=== PATIENT | female | born 1950 | race Caucasian/White ===

== ENCOUNTER 2019-08-25 22:09 | Emergency (ER) | payer MEDICARE ==
[~2019-08-25] VITALS: Ht 160 cm; Wt 95.2 kg
[2019-08-25] MEDS ORDERED: SYNTHROID125 MCG PO (22:26)
[2019-08-25] MEDS ORDERED: ZINC50 MG PO (22:27)
== END 2019-08-25 23:10 | disposition home or self-care (01) ==
LOC: ED 22:09
DX: R04.0 Epistaxis (principal); Z88.0 Allergy status to penicillin; Z79.899 Other long term (current) drug therapy
CPT/HCPCS: 99283

== ENCOUNTER 2020-01-01 08:50 | Emergency (ER) | payer MEDICARE ==
[~2020-01-01] VITALS: Ht 160 cm; Wt 95.2 kg
[~2020-01-01 08:50] MED LIST: SYNTHROID125 MCG PO; ZINC50 MG PO
[2020-01-01] MEDS ORDERED: ZITHROMAX250 MG PO (09:45)
== END 2020-01-01 09:57 | disposition home or self-care (01) ==
LOC: ED 08:50
PROC: 2Y41X5Z Packing of Nasal Region using Packing Material (ICD-10-PCS; principal; 2020-01-01)
DX: R04.0 Epistaxis (principal); Z88.0 Allergy status to penicillin; Z79.899 Other long term (current) drug therapy
CPT/HCPCS: 30901; 99283-25

== ENCOUNTER 2021-07-13 12:38 | Emergency (ER) | payer MEDICARE ==
[~2021-07-13] VITALS: Ht 160 cm; Wt 95.2 kg
[~2021-07-13 12:38] MED LIST changes: +ZITHROMAX250 MG PO
[2021-07-13] MEDS ORDERED: OMEPRAZOLE20 MG PO (12:57)
[2021-07-13] MEDS ORDERED: D3 + K2 DOTS 11 EACH PO (12:58)
[2021-07-13] MEDS ORDERED: NEURIVA DE-STR1 EACH PO (12:58)
[2021-07-13] MEDS ORDERED: B12 ACTIVE1000 MCG PO (12:58)
== END 2021-07-13 15:35 | disposition home or self-care (01) ==
LOC: ED 12:38
DX: R04.0 Epistaxis (principal); Z88.0 Allergy status to penicillin; Z79.899 Other long term (current) drug therapy
CPT/HCPCS: 30901; 99283-25

== ENCOUNTER 2021-07-13 18:53 | Emergency (ER) | payer MEDICARE ==
[~2021-07-13] VITALS: Ht 160 cm; Wt 95.2 kg
[~2021-07-13 18:53] MED LIST changes: +B12 ACTIVE1000 MCG PO; +D3 + K2 DOTS 11 EACH PO; +NEURIVA DE-STR1 EACH PO; +OMEPRAZOLE20 MG PO
--- OUTSIDE RECORDS SUMMARY | 2021-07-13 19:00 | XMS ---
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 - 2 Visits in 30 Days CARE PROVIDERS There are no care providers on record at this time. Debby has no Care Guidelines for this patient. Maria M VISIT COUNT (12 MO.) [facility] NOTE: Visits indicate total known visits. ED/C VISIT TRACKING (12 MO.) [facility] COMPLAINT: - NOSE BLEED 07/13/2021 12:39 [facility] [place] TYPE: Emergency COMPLAINT: - BLOODY NOSE INPATIENT VISIT TRACKING (12 MO.) No inpatient visits to display in this time frame [id number]
== END 2021-07-13 19:47 | disposition home or self-care (01) ==
LOC: ED 18:53
DX: R04.0 Epistaxis (principal); Z88.0 Allergy status to penicillin; Z79.899 Other long term (current) drug therapy
CPT/HCPCS: 30903; 99283-25

== ENCOUNTER 2021-07-14 18:36 | Emergency (ER) | payer MEDICARE ==
[~2021-07-14] VITALS: Ht 160 cm; Wt 99.8 kg
--- OUTSIDE RECORDS SUMMARY | 2021-07-14 18:44 | XMS ---
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 Debby has no Care Guidelines for this patient. Maria M [facility] MO[facility] NOTE: Visits indicate total known visits. ED/C VISIT TRACKING (12 MO.) [facility] COMPLAINT: - NOSE BLEED/PAIN 07/13/2021 18:53 [facility] [place] TYPE: Emergency COMPLAINT: - NOSE BLEED 07/13/2021 12:39 [facility] [place] TYPE: Emergency COMPLAINT: - BLOODY NOSE INPATIENT VISIT TRACKING (12 MO.) No inpatient visits to display in this time frame [id number]
== END 2021-07-14 20:20 | disposition home or self-care (01) ==
LOC: ED 18:36
DX: R04.0 Epistaxis (principal); Z79.899 Other long term (current) drug therapy; Z88.0 Allergy status to penicillin
CPT/HCPCS: 30903; 99283-25

== ENCOUNTER 2022-07-26 16:00 | Emergency (ER) | payer OTHER, MEDICARE ==
[~2022-07-26] VITALS: Ht 160 cm; Wt 105.7 kg
[2022-07-26] MEDS ORDERED: OMEPRAZOLE40 MG PO (16:35)
[2022-07-26] MEDS ORDERED: LISINOPRIL10 MG PO (16:35)
[2022-07-26] MEDS ORDERED: VERAPAMIL SR180 MG PO (16:36)
== END 2022-07-26 17:30 | disposition home or self-care (01) ==
LOC: ED 16:00
DX: S60.221A Contusion of right hand, initial encounter (principal); W01.10XA Fall on same level from slipping, tripping and stumbling with subsequent striking against unspecified object, initial encounter; Z88.0 Allergy status to penicillin; Z79.899 Other long term (current) drug therapy
CPT/HCPCS: 73130; 99283-25

== ENCOUNTER 2025-01-17 13:37 | Emergency (ER) | payer MEDICARE ==
[~2025-01-17] VITALS: Ht 160 cm; Wt 94.0 kg
[~2025-01-17 13:37] MED LIST changes: +CYCLOBENZAPRINE10 MG PO; +FENOFIBRATE145 MG PO; +LISINOPRIL10 MG PO; +OMEPRAZOLE40 MG PO; +PANTOPRAZOLE SO40 MG PO; +PAXLOVID 300-11 EAC1 PO; +VERAPAMIL SR180 MG PO
[2025-01-17] MEDS ORDERED: LATANOPROST2.5 ML (13:58)
[2025-01-17] MEDS ORDERED: ARTHRITIS PAIN650 MG (13:59)
[2025-01-17] MEDS ORDERED: ADVIL200 MG (14:00)
[2025-01-17 14:56] VITALS: BP 114/83
== END 2025-01-17 14:57 | disposition home or self-care (01) ==
LOC: ED 13:37
DX: J02.9 Acute pharyngitis, unspecified (principal); I10 Essential (primary) hypertension; E03.9 Hypothyroidism, unspecified; K21.9 Gastro-esophageal reflux disease without esophagitis; Z79.899 Other long term (current) drug therapy; Z88.0 Allergy status to penicillin
CPT/HCPCS: 87651; 99283

== ENCOUNTER 2025-02-16 00:56 | Emergency (ER) | payer MEDICARE ==
[~2025-02-16] VITALS: Ht 162.6 cm; Wt 93.0 kg
--- OUTSIDE RECORDS SUMMARY | ~2025-02-16 | XMS | Continuity of Care Document ---
Demographics + + + | Address | [address] | | | [place] [address] | + + + | Preferred Language | Unknown | + + + | Marital Status | | + + + | Denominational Affiliation | Unknown | + + + | Race | White | + + + | Ethnic Group | Not or | + + + Author + + + | Author | [facility] | + + + | Organization | [facility] | + + + | Address | [address] | | | [place] [address] | + + + | Phone | | + + + Care Team Providers + + + + | Care Insurance Adjuster Name | Role | Phone | + + + + Unavailable | Unavailable | + + + + Unavailable | Unavailable | + + + + Allergies No information. Encounters No information. Functional Status No information. Immunizations No information. Medications + + + + | date | description | facility | + + + + | (no date) | ACETAMINOPHEN | [facility] | | | | [facility] | + + + + | (no date) | Mecobalamin | [facility] | | | | [facility] | + + + + | (no date) | IBUPROFEN | [facility] | | | | [facility] | + + + + | (no date) | ZINC GLUCONATE | [facility] | | | | [facility] | + + + + | (no date) | LATANOPROST | [facility] | | | | [facility] | + + + + | (no date) | PANTOPRAZOLE SODIUM | [facility] | | | | [facility] | + + + + | (no date) | FENOFIBRATE | [facility] | | | NANOCRYSTALLIZED | [facility] | + + + + | (no date) | VITAMIN D3/MENAQUINONE 7 | [facility] | | | | [facility] | + + + + | (no date) | VERAPAMIL HCL | [facility] | | | | [facility] | + + + + | (no date) | LEVOTHYROXINE SODIUM | [facility] | | | | [facility] | + + + + Problems + + + + | date | description | facility | + + + + | 2025-01-17 00:00 | Pharyngitis | [facility] | | | | [facility] | + + + + Procedures No information. Results/Labs No information. Social History +--------+ + + | date | description | facility | +--------+ + + Vital Signs + + + +---------+ | date | measurement | value | units | + + + +---------+ | 2025-01-17 00:00 | BMI | 36.7 | kg/m2 | + + + +---------+ | 2025-01-17 00:00 | BP_diastolic | 83 | mmHg | + + + +---------+ | 2025-01-17 00:00 | BP_systolic | 114 | mmHg | + + + +---------+ | 2025-01-17 00:00 | heart_rate | 65 | /min | + + + +---------+ | 2025-01-17 00:00 | height_metric | 160.02 | cm | + + + +---------+ | 2025-01-17 00:00 | height_standard | 63 | in | + + + +---------+ | 2025-01-17 00:00 | o2_saturation | 94 | % | + + + +---------+ | 2025-01-17 00:00 | respiration_rate | 16 | /min | + + + +---------+ | 2025-01-17 00:00 | | 98 | F | | | temperature_standar | | | | | d | | | + + + +---------+ | 2025-01-17 00:00 | weight_metric | 94.001 | kg | + + + +---------+ | 2025-01-17 00:00 | weight_standard | 207.237 | lb | + + + +---------+"
[~2025-02-16 00:56] MED LIST changes: +ADVIL200 MG; +ARTHRITIS PAIN650 MG; +LATANOPROST2.5 ML
--- OUTSIDE RECORDS SUMMARY | 2025-02-16 01:03 | XMS ---
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 Debby has no Care Guidelines for this patient. Maria M VISIT COUNT (12 MO.) [address] [facility] [address] TOTAL 2 NOTE: Visits indicate total known visits. ED/C VISIT TRACKING (12 MO.) 02/16/2025 00:57 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
[2025-02-16] MEDS ORDERED: VERAPAMIL SR180 MG PO (01:09)
[2025-02-16 01:13] LABS: BASOPHILS 0.1 % (0.1-1.2); EOSINOPHILS 1.1 % (0.7-5.8); LYMPHOCYTES 27.8 % (19.3-51.7); MCH 30.4 PG (25.6-32.2); MCHC 33.4 g/dL (32.2-35.5); MCV 91.0 fL (79.4-94.8); MONOCYTES 8.1 % (4.7-12.5); NEUTROPHILS 62.5 % (34.0-71.1); RBC 4.57 M/uL (3.93-5.22)
[2025-02-16] MEDS ORDERED: SUCRALFATE 1 GM TAB PO ONE (01:15)
[2025-02-16] MEDS ORDERED: MORPHINE SULFATE 4 MG/ML VIAL IV ONE (01:15)
[2025-02-16] MEDS ORDERED: LIDOCAINE & ANTACID 35 ML BTL PO ONE (01:15)
[2025-02-16] MEDS ORDERED: PANTOPRAZOLE SODIUM 40 MG/10 ML VIAL IV ONE (01:15)
[2025-02-16 01:23] LABS: INR 0.93 (0.80-1.30); PROTIME 11.8 Sec (11.2-14.2)
[2025-02-16 01:37] LABS: ALT (SGPT) 21 U/L (14-59); AST (SGOT) 15 U/L (15-37); GLOMERULAR FILTRATION RATE,EST 66 mL/min (>60); PROTEIN, TOTAL 7.5 g/dL (6.4-8.2); UREA NITROGEN 19 mg/dL (7-18)
[2025-02-16] MEDS ORDERED: ONDANSETRON ODT8 MG PO (03:12)
[2025-02-16] MEDS ORDERED: HYDROCODON-ACE1 EA10 PO (03:12)
[2025-02-16] MEDS ORDERED: HYDROCODONE BIT/ACETAMINOPHEN 5/325 MG 1 TAB HOME.PACK PO ONE (03:15)
[2025-02-16] MEDS ORDERED: ONDANSETRON 4 MG HOME.PACK SL ONE (03:30)
[2025-02-16 03:33] VITALS: BP 129/61
--- NOTE | 2025-02-16 08:26 | EKG ---
[facility] [address] [place] [address] Signed Normal sinus rhythm Low voltage QRS Borderline ECG No previous ECGs available Confirmed by Emely Williamson MD () on 02/16/2025 8:25:46 AM Electronically Signed By: EMELY WILLIAMSON MD 02/16/25825 PATIENT NAME: YOANA PARR Electrocardiogram DATE OF : 48 PHYSICIAN: EMELY WILLIAMSON MD REPORT #: [id number] REPORT IS CONFIDENTIAL AND NOT TO BE RELEASED WITHOUT AUTHORIZATION
== END 2025-02-16 03:34 | disposition home or self-care (01) ==
LOC: ED 00:56
PROVIDERS: Family Medicine
DX: K85.90 Acute pancreatitis without necrosis or infection, unspecified (principal); I10 Essential (primary) hypertension; K21.9 Gastro-esophageal reflux disease without esophagitis; Z88.0 Allergy status to penicillin; Z79.899 Other long term (current) drug therapy; Z79.2 Long term (current) use of antibiotics
CPT/HCPCS: 36415; 71045; 74177; 80053; 82378; 83690; 83735; 83880; 84478; 84484; 85025; 85379; 85610; 86301; 93005; 93010; 96374; 99284-25; A9270; J2470; Q9967

== ENCOUNTER 2025-03-09 05:53 | Day surgery (SDC) | payer MEDICARE ==
[2025-03-08 15:44] VITALS: BP 136/92
[~2025-03-09] VITALS: Ht 162.6 cm; Wt 91.0 kg
[~2025-03-09 05:53] MED LIST changes: +FLUOXETINE HCL10 M1 PO; +HYDROCODON-ACE1 EA10 PO; +LACTATED RINGER'S 1,000 ML IV SCH; +ONDANSETRON ODT8 MG PO
[2025-03-09 06:11] VITALS: BP 151/83
[2025-03-09] MEDS ORDERED: SODIUM CHLORIDE 0.9% 40 ML IV ONE (06:46)
[2025-03-09] MEDS ORDERED: HEParin SOD (PORCINE) 5,000 UNIT/ML SDV SUB-Q SCH (07:00)
[2025-03-09] MEDS ORDERED: LIDOCAINE HCL 1% 5 ML SDV INJ ONE (07:00)
[2025-03-09] MEDS ORDERED: CEFAZOLIN SODIUM 2 GM in SODIUM CHLORIDE 0.9% 100 ML IV SCH (07:00)
[2025-03-09] MEDS ORDERED: IBLOOD GLUCOSE TEST STRIP 1 EA TEST VI PRN ×2 (07:00→09:15)
[2025-03-09] MEDS ORDERED: SEVOFLURANE 250 ML BTL ONE (08:31)
[2025-03-09] MEDS ORDERED: SUGAMMADEX SODIUM 200 MG/2 ML ML ONE (08:32)
[2025-03-09] MEDS ORDERED: KETOROLAC TROMETHAMINE 30 MG/ML VIAL ONE (08:32)
[2025-03-09] MEDS ORDERED: SUCCINYLCHOLINE IN 0.9% NACL 200 MG/10 ML SYRINGE ONE (08:32)
[2025-03-09] MEDS ORDERED: LIDOCAINE HCL 2% 5 ML SDV ONE ×2 (08:32→09:03)
[2025-03-09] MEDS ORDERED: DEXAMETHASONE SOD PHOS 4 MG/ML VIAL ONE (08:32)
[2025-03-09] MEDS ORDERED: ACETAMINOPHEN 1,000 MG/100 ML VIAL ONE (08:32)
[2025-03-09] MEDS ORDERED: ROCURONIUM BROMIDE 50 MG/5 ML SYR ONE (08:32)
[2025-03-09] MEDS ORDERED: fentaNYL citrate 100 MCG/2 ML VIAL ONE (08:33)
[2025-03-09] MEDS ORDERED: LACTATED RINGER'S 1,000 ML IV ONE (09:03)
[2025-03-09] MEDS ORDERED: fentaNYL citrate 50 MCG/ML SDV IV PRN (09:15)
[2025-03-09] MEDS ORDERED: NALOXONE HCL 0.4 MG SYR IV PRN ×2 (09:15→10:30)
[2025-03-09] MEDS ORDERED: HYDROmorphone HCL 1 MG/ML SYR IV PRN (09:15)
[2025-03-09] MEDS ORDERED: PROCHLORPERAZINE EDISYLATE 10 MG/2 ML VIAL IV PRN (09:15)
--- NOTE | 2025-03-09 10:13 | NUR ---
03/09/25 Jose J3 Sharon Cruz 1008-PATIENT ARRIVED TO PACU ON 6L MASK RR EVEN NONAROUSABLE 100%. 4 LAP SITES TO ABDOMEN INTACT. IVF INFUSING. SINUS BRADYCARDIA HR UPPER 50'S.
[2025-03-09] MEDS ORDERED: ACETAMINOPHEN 500 MG TAB PO PRN (10:30)
[2025-03-09] MEDS ORDERED: LACTATED RINGER'S 1,000 ML IV SCH (10:30)
[2025-03-09] MEDS ORDERED: IBUPROFEN 600 MG TAB PO PRN (10:30)
[2025-03-09] MEDS ORDERED: OXYCODONE/APAP 7.5/325 TAB PO PRN (10:30)
[2025-03-09] MEDS ORDERED: IBUPROFEN600 MG PO (10:30)
[2025-03-09] MEDS ORDERED: OXYCODON-ACETA1 EAC2 PO (10:31)
[2025-03-09] MEDS ORDERED: ACETAMINOPHEN500 MG PO (10:31)
[2025-03-09 10:53] VITALS: BP 149/68
[2025-03-09] MEDS ORDERED: MORPHINE SULFATE 4 MG/ML VIAL IV ONE (11:15)
[2025-03-09] MEDS ORDERED: LORazepam 2 MG/ML VIAL ONE (11:36)
[2025-03-09 11:47] VITALS: BP 155/76
[2025-03-09] MEDS ORDERED: LORazepam 2 MG/ML VIAL IV ONE (12:00)
--- NOTE | 2025-03-09 12:13 | NUR ---
LE 1045-PT BACK TO ROOM FROM PACU ON 2L VIA NC. RECEIVED REPORT FROM STEVEN ESPINOZA. PT IS DROWSY. RESP EVEN AND UNLABORED. PT STATES SHE NEEDS TO USE THE RESTROOM. LE 1050-PT UP TO THE BEDSIDE COMMODE. PT VOIDS 275ML OF YELLOW URINE. BEDDING CHANGED. LE 1055-PT BACK TO BED. RATES PAIN /10. PT TEARY. PT EATING CRACKERS AND DRINKING WATER. LE 1057-PAIN MEDICATION GIVEN PER EMAR.
--- NOTE | 2025-03-09 12:26 | NUR ---
LE 1105-PT TEARY. RATES PAIN 11/05. WARM BLANKET PLACED ON ABDOMEN AND PILLOW GIVEN TO SPLINT WITH WHEN COUGHING OR DEEP BREATHING. LE 1108-VO PER DR COTTON FOR MORPHINE 4MG NOW. ORDER PLACED IN COMPUTER. LE 1114-MORPHINE GIVEN PER EMAR. NO OTHER NEEDS AT THIS TIME. AT BEDSIDE. CALL LIGHT WITHIN REACH.
--- NOTE | 2025-03-09 12:30 | NUR ---
LE 1125-PT IS TOSSING AND TURNING IN DISCOMFORT. PT POINTS TO UPPER ABDOMEN AND SAYS "IT HURTS SO BAD". PT STATES PAIN IS A 10/10. ENCOURAGED PT TO TAKE SLOW DEEP BREATHS. LE 1130- UPDATE GIVEN TO DR. COTTON. VO FOR ATIVAN 1MG. ORDER PLACED IN COMPUTER. LE 1138-PT MOANING AND TOSSING AND TURNING WITH DISCOMFORT. ATIVAN GIVEN PER EMAR. PT ENCOURAGED TO TAKE SLOW DEEP BREATHS. CONTINUOUS PULSE OX. LE 1145-PT'S 02 SAT AT 85% ON 2L VIA NC. PT ENCOURAGED TO TAKE DEEP BREATHS. LE 1147-PT LAYING IN BED WITH EYES CLOSED. RESP EVEN AND UNLABORED. PT APPEARS COMFORTABLE. PT RATES HER PAIN 2/10. PT O2 SAT LOW 90'S ON 2L VIA NC. NO OTHER NEEDS AT THIS TIME. WENT TO PHARMACY. CALL LIGHTWITHIN REACH. PULSE OX RREMAINS ON PT.
[2025-03-09 12:48] VITALS: BP 142/73
--- NOTE | 2025-03-09 13:22 | NUR ---
ALEJANDRO 1248-PT LAYING IN BED WITH EYES CLOSED. PT RESPONDS TO TACTILIE STIMULI AND ANSWERES QUESTIONS BUT FALLS BACK TO SLEEP EASILY. RESP EVEN AND UNLABORED. RATES PAIN 210. AT BEDSIDE. CONTINUOUS PULSE OX ON. NO OTHER NEEDS AT THIS TIME. CALL LIGHT WITHIN REACH.
[2025-03-09 13:45] VITALS: BP 149/75
--- NOTE | 2025-03-09 14:15 | NUR ---
1345-PT LAYING IN BED WITH EYES CLOSED. PT OPENS EYES WITH VERBAL STIMULI. RESP EVEN AND UNLABORED. PT RATES PAIN 7/10. PT STATES SHE NEEDS TO USE THE RESTROOM. ENCOURAGED PT TO WALK TO RESTROOM. EXPLAINING THIS MAY HELP WITH THE PAIN. WHEN PT SITS AT BEDSIDE SHE STARTS TO VOID. BEDSIDE COMMODE BROUGHT IN. 1350-PT SITTING ON BEDSIDE COMMODE. PT STATES PAIN IS BETTER SINCE MOVING. PT NOW RATES PAIN 3/10. TALKED WITH PT RE GAS PAINS AND THE BENEFIT TO GETTING UP AND MOVING AROUND. PT VERBALIZED UNDERSTANDING. 1400-PT BACK TO BED. REINFORCED 2 LAP SITES WITH GAUZE AND TAPE. NEW WARM BLANKETS PROVIEDED. BED RAILS UP. CALL LIGHT WITHIN REACH.
[2025-03-09 14:55] VITALS: BP 136/70
[2025-03-09] MEDS ORDERED: SEVOFLURANE 250 ML BTL INH ONE (16:01)
--- NOTE | 2025-03-09 16:26 | NUR ---
LE 1455-PT IS AWAKE. RESP EVEN AND UNLABORED. PT DENIES PAIN AND NAUSEA. PT IS READY TO GO HOME. PT WILL GET DRESSED WITH IN ROOM TO HELP. CALL LIGHT WITHIN REACH. LE 1510-WENT OVER DISCHARGE INSTRUCTIONS WITH PT AND . WENT OVER POSTOP MEDICATIONS. ALL QUESTIONS ANSWERED. LE 1515-PT AMBULATES TO [facility]ALK[facility] AND RIDE PROVIDED TO FRONT OF HOSPITAL WHERE HER WAS WAITING WITH THE CAR.
--- NOTE | 2025-03-11 11:30 | OR ---
[facility] [address] [place], [place] [address] Signed DATE OF OPERATION: 03/09/2025 SURGEON: Malaika Cotton MD PREOPERATIVE DIAGNOSIS: Acalculous cholecystitis. CCK-HIDA test 0% ejection fraction. POSTOPERATIVE DIAGNOSIS: Chronic calculous cholecystitis. PROCEDURES: 1. Laparoscopic cholecystectomy with intraoperative cholangiogram. 2. Surgeon-directed fluoroscopy. ANESTHESIA: General endotracheal, Willi Holland CRNA and local 10 mL of 0.25% Marcaine with epinephrine. INDICATION: This 74-year-old white woman had an episode of rather severe abdominal pain, ultimately found likely to be related to biliary disease. She was evaluated in the emergency room, said to have had a gallbladder ultrasound which was negative and a CCK-HIDA test was performed on February 24, 2025 as ordered by TAMIA Thapa which showed 0% ejection fraction. She did not have symptoms with the CCK-HIDA test, however. She does have family history of cholecystectomy in her mother. She is admitted at this time to undergo cholecystectomy preferred by a laparoscopic approach for symptomatic biliary disease. She understands risk of bleeding, infection, bile duct injury, and most importantly failure to cure her symptoms. Understanding that, she wished to proceed. FINDINGS: The liver was normal. There was no sign of ascites or carcinomatosis. The gallbladder itself was chronically inflamed and distended. Transillumination did show multiple stones. Cholangiogram was normal with no sign of filling defect or other abnormality. There was a prominent right hepatic biliary radicle noted after securing the cystic duct completely unharmed but notable in the dorie hepatis. The gallbladder itself had multiple small stones, 5 mm or less in size, uniform in size and the mucosa was chronically inflamed. DESCRIPTION OF PROCEDURE: The patient was brought to the operating room, given a general endotracheal anesthetic. Electronically Signed By: MALAIKA COTTON MD 03/11/25 1130 PATIENT NAME: YOANA PARR OPERATIVE REPORT DATE OF : 48 REPORT #: [id number] PHYSICIAN: MALAIKA COTTON MD PCP: EBONI FUNES PAC REPORT IS CONFIDENTIAL AND NOT TO BE RELEASED WITHOUT AUTHORIZATION [facility] [address] [place], [place] [address] Signed Sequential compression device stockings were used and heparin subcutaneously administered. Preoperative antibiotic Ancef had been given. The abdomen was prepared with chlorhexidine solution and draped sterilely. An infraumbilical incision was made and using an open Vignesh cannula technique pneumoperitoneum was achieved at a level 14 mmHg of carbon dioxide gas. Intra-abdominal inspection showed no sign of ascites or carcinomatosis. The liver was normal. The gallbladder was somewhat distended, chronically inflamed, but did have transilluminating gallstones noted. This was . The apex of the gallbladder was grasped and elevated cephalad and retracted laterally and using blunt and electrocautery dissection, the triangle of Calot was dissected free. A dominant cystic arterial branch was identified, doubly clipped and divided. The cystic duct was dissected free from the surrounding area and the view of safety maintained. A clip was applied across the gallbladder cystic duct junction and a transverse choledochotomy made in the cystic duct. Egress of clear yellow bile was noted. Using an Rodgers type cholangiocatheter, intraoperative cholangiography was undertaken showing free flow of contrast in biliary tree with prompt emptying into the duodenum. Additional injection allowed for visualization proximally of the common bile duct and common hepatic duct. Additional injection was not undertaken other than that. Catheter was removed and the cystic duct was triply clipped and divided and the gallbladder was dissected free in a retrograde fashion using electrocautery. A small rent in the gallbladder allowed for egress of bile, but no egress of stones. The gallbladder was placed in an endobag and extracted through the infraumbilical port site without problem, opened on the back table and found to have multiple yellow round 5 mm gallstones. The mucosa was chronically inflamed. Irrigation was undertaken in the subhepatic space. Close inspection showed right hepatic duct at the base of the triangle of Calot, not far from the cystic duct itself, which may be slightly anomalous, but certainly was not harmed. Further interrogation was avoided. The liver bed was insufflated with Ilia hemostatic agent so as to avoid any additional cautery near the right hepatic duct that had been identified. The excess irrigation fluid was suctioned free and the trocars were removed under direct visualization showing no sign of bleeding. The infraumbilical fascial incision was reapproximated with interrupted 0 Vicryl suture. 10 mL of 0.25% Marcaine with epinephrine was injected locally. The skin was closed with interrupted 3-0 Vicryl. Steri-Strips were applied. The patient was ultimately extubated and transferred to the recovery room in good condition having suffered no complications. Sponge, needle, and instrument counts were reported as correct x3. Malaika Cotton MD Electronically Signed By: MALAIKA COTTON MD 03/11/25 1130 PATIENT NAME: YOANA PARR OPERATIVE REPORT DATE OF : 48 REPORT #: [id number] PHYSICIAN: MALAIKA COTTON MD PCP: EBONI FUNES REPORT IS CONFIDENTIAL AND NOT TO BE RELEASED WITHOUT AUTHORIZATION [address] [place] [address] Signed /MARBIN /[id number] cc: NEPTALI High PA Copies: EBONI FUNES LINDA PA ~ Electronically Signed By: MALAIKA COTTON MD 03/11/25 1130 PATIENT NAME: YOANA PARR OPERATIVE REPORT DATE OF : 48 REPORT #: [id number] PHYSICIAN: MALAIKA COTTON MD PCP: EBONI FUNES REPORT IS CONFIDENTIAL AND NOT TO BE RELEASED WITHOUT AUTHORIZATION
--- NOTE | 2025-03-11 11:32 | PATH ---
[facility] [address] [place], [place] [address] Signed SPECIMEN(S): A GALLBLADDER AND GALLSTONES SPECIMEN SOURCE: A. GALLBLADDER AND GALLSTONES CLINICAL HISTORY: Acalculous cholecystitis/calculous cholecystitis FINAL PATHOLOGIC DIAGNOSIS: Gallbladder and gallstones per requisition: - Chronic cholecystitis - Cholelithiasis BB MICROSCOPIC EXAMINATION: Histologic sections of all submitted blocks are examined by light microscopy. These findings, together with the gross examination, support the pathologic diagnosis. GROSS DESCRIPTION: The specimen, labeled and designated "Mark AlyssaEdwar, gallbladder and gallstones per requisition," is received in formalin and consists of Specimen: Surgically disrupted gallbladder. Dimensions: 10.4 x 3.5 x 2.2 cm. Serosa: Blue-green and smooth. Cystic Duct: Unobstructed, inked. Calculi: Present�yellow and botryoid averaging 0.4 cm in greatest dimension.. Mucosa: Green and velvety with yellow flecking. Wall thickness: 0.1 to 0.2 cm. Lymph node: No pericystic lymph nodes are grossly identified. Additional: None. Emblem Maker sections are submitted in (A1). AA (under the direct supervision of a pathologist) The Gross Description was prepared using a voice recognition system. The report was reviewed for accuracy; however, sound-alike word errors, addition and/or deletions may occur. If there is any question about this report, please contact Client Services. ADDITIONAL NOTES: Immunohistochemical and/or in situ hybridization studies if performed in this case included appropriate positive controls that reacted as expected. This PATIENT NAME: YOANA PARR PATHOLOGY DATE OF : 48 REPORT #: [id number] PHYSICIAN: PARKER GARIBAY PCP: EBONI FUNES PAC REPORT IS CONFIDENTIAL AND NOT TO BE RELEASED WITHOUT AUTHORIZATION [facility] [address] [place] [address] Signed test was developed and its performance characteristics determined by [employer]. It has not been cleared or approved by the U.S. Food and Drug Administration. The FDA has determined that such clearance or approval is not necessary. This test is used for clinical purposes. It should not be regarded as investigational or for research. [employer] is certified under the Clinical Laboratory Improvement Amendments of 1988 (CLIA) as qualified to perform high complexity clinical laboratory testing. PERFORMING LABORATORY: Technical component was performed by [employer], [address] [place] [id number] (CLIA# [id number]). Professional interpretation was performed [place] [address] (CLIA#: [id number]). Diagnostician: Master Do MD Pathologist Electronically Signed 03/11/2025 Copies: ~ PATIENT NAME: YOANA PARR PATHOLOGY DATE OF : 48 REPORT #: [id number] PHYSICIAN: PARKER PATHOLOGY PCP: EBONI FUNES PAC REPORT IS CONFIDENTIAL AND NOT TO BE RELEASED WITHOUT AUTHORIZATION
== END 2025-03-09 15:15 | disposition home or self-care (01) ==
LOC: DS 05:53
PROVIDERS: ATTEND Surgery
PROC: BF03YZZ Plain Radiography of Gallbladder and Bile Ducts using Other Contrast (ICD-10-PCS; 2025-03-09)
PROC: 0FT44ZZ Resection of Gallbladder, Percutaneous Endoscopic Approach (ICD-10-PCS; principal; 2025-03-09 07:30)
DX: K80.10 Calculus of gallbladder with chronic cholecystitis without obstruction (principal); E89.0 Postprocedural hypothyroidism; K21.9 Gastro-esophageal reflux disease without esophagitis; Z79.890 Hormone replacement therapy; Z79.899 Other long term (current) drug therapy; Z88.0 Allergy status to penicillin
CPT/HCPCS: 00790; 74300; 88304; J0131; J0330; J0688; J1100; J1644; J1885; J2003; J2060; J2270; J2405; J2704; J3010; J3490; J7121; Q9967

== ENCOUNTER 2025-04-20 14:31 | Emergency (ER) | payer MEDICARE ==
[~2025-04-20] VITALS: Ht 162.6 cm; Wt 93.5 kg
[~2025-04-20 14:31] MED LIST changes: +ACETAMINOPHEN500 MG PO; +IBUPROFEN600 MG PO; -LACTATED RINGER'S 1,000 ML IV SCH; +OXYCODON-ACETA1 EAC2 PO
[2025-04-20] MEDS ORDERED: PHENYLEPHRINE HCL NAS ONE (17:30)
[2025-04-20 18:38] VITALS: BP 155/84
== END 2025-04-20 18:38 | disposition home or self-care (01) ==
LOC: ED 14:31
DX: R04.0 Epistaxis (principal); I10 Essential (primary) hypertension; E03.9 Hypothyroidism, unspecified; K21.9 Gastro-esophageal reflux disease without esophagitis; Z79.899 Other long term (current) drug therapy; Z88.0 Allergy status to penicillin
CPT/HCPCS: 30901; 99283